=== PATIENT | female | born 1980 | race Caucasian/White ===

== ENCOUNTER 2016-10-09 19:45 | Inpatient (IN) | payer OTHER ==
[2016-10-09] MEDS ORDERED: Lactated Ringer's 1,000 ML IV SCH ×2 (19:47→20:00)
[2016-10-09 19:48] VITALS: BMI 25.0
[2016-10-09 20:50] LABS: BASO % 0.4 % (0.0-2.0); EOS # 0.2 K/uL (0.0-0.7); EOS % 1.6 % (0.0-4.0); HEMATOCRIT 34.4 % (34.0-47.0); LYMPH # 1.6 K/uL (1.0-4.3); LYMPH % 14.3 % (20.0-40.0); MEAN CELL VOLUME 90.3 fl (81.0-99.0); MEAN CORPUSCULAR HEMOGLOBIN 29.7 pg (27.0-31.0); MEAN CORPUSCULAR HGB CONC 32.9 g/dL (33.0-37.0); MEAN PLATELET VOLUME 8.3 fl (7.2-11.7); MONO % 9.2 % (0.0-10.0); NEUT # 8.3 K/uL (1.8-7.0); NEUT % 74.5 % (50.0-75.0); NRBC % 0.1 % (0.0-0.0); RED CELL DISTRIBUTION WIDTH 13.2 % (11.5-14.5); WHITE BLOOD COUNT 11.1 K/uL (4.8-10.8)
--- NOTE | 2016-10-09 21:00 | OBHP ---
Datetime: 10/09/2016 19:57 IP Adm Impression: Term, intrauterine IP Admit Plan: Admit to unit; Initiate labor protocol; Initiate labor induction protocol Admit Comment, IP Provider: 36 y/o @37.1 weeks IUP presents for IOL due to low QUINTEN. Patient hill s no complaints. Patient reports positive movements. Patient continues taking PNVs, vit D, Vi t C, and omega-3. Patient denies VB, LOF, CTX, headaches, chest pain, SOB, n/v/d, dysuria, and fever . Clinic: [facility] PMH: none PSH: hysteroscopy 10/2015 OBHx: none SOC: denies smoking, alcohol, and drugs GBS: neg HIV: neg RPR: neg rubella: immune GC/C: neg O: CV: RRR Resp: CTA bl A: 36 y/o @ 37.1 weeks IUP presents for IOL due to low QUINTEN P: admit to unit initiate labor protocol initiate induction protocol continuous monitoring LR IV bolus LR IV @ 125mL/hr CBC w/ diff ordered type and screen ordered cervidil ordered anticipate vaginal delivery Jw Baltazar MD Clinical Ob The patient was seen with the resident and I agree with the notes induction of labor secondary to Oligohydramnios Will Place cervidil adequate pelvis vertex presentation estimated weight 7 poun ds anticipate normal vaginal delivery Pelvic Type - PN: Adequate Extremities - PN: Normal Abdomen - PN: Normal Back - PN: Normal Breast - PN: Normal Lungs - PN: Normal Heart - PN: Normal Thyroid - PN: Normal Neurologic - PN: Normal HEENT - PN: Normal General - PN: Normal IP Indication for Induction Oth: low QUINTEN IP Chief Complaint: Scheduled induction of labor Genitourinary Exam: Normal DTRs - PN: Normal
--- NOTE | 2016-10-10 11:19 | OBPN ---
Datetime: 10/10/2016 11:02 IP Progress Impression Other: Oligohydramnios IP Procedures: Sterile Vag Exam IP Progress Plan: Continue present management Membranes, Provider: Intact Contraction Comments Provider: Q2 FHR - Baseline A Provider: 140 IP Progress Note Comment: 36 yo G1 at 37+2 wks for induction of labor for oligohydramnios S/p cervidil Will start pitocin if contractions less frequent Vital Signs Provider: Reviewed NICHD Accel Fetus A IP Provider: [id number] FHR Category Provider Fetus A: Category I NICHD Variability Prov Fetus A: Moderate 6-25bpm Dilatation, Provider: 0 Effacement, Provider: 80 Station, Provider: -3 NICHD Decel Fetus A IP Provider: None
[2016-10-10] MEDS ORDERED: Lactated Ringer's 500 ML IV SCH (12:00)
[2016-10-10] MEDS ORDERED: Lactated Ringer's 1,000 ML IV SCH ×3 (13:02→22:15)
--- NOTE | 2016-10-10 19:06 | OBPN ---
Datetime: 10/10/2016 18:47 IP Progress Impression Other: Oligohydramnios IP Procedures: Sterile Vag Exam IP Progress Plan: Cervical Ripening Membranes, Provider: Intact FHR - Baseline A Provider: 130 IP Progress Note Comment: 36 yo G1 at 37+2 wks for oligohydramnios s/p cervidil FHT reassuring, GBS negative Will start oral miso 25 mcg Vital Signs Provider: Reviewed NICHD Accel Fetus A IP Provider: 15X15 FHR Category Provider Fetus A: Category I NICHD Variability Prov Fetus A: Moderate 6-25bpm Dilatation, Provider: 1 Effacement, Provider: 65 Station, Provider: -2
[2016-10-11] MEDS ORDERED: Oxytocin 30 units/LR 500ML 30 U/500 ML BAG IV ONE (09:37)
[2016-10-11] MEDS ORDERED: Lactated Ringer's 1,000 ML IV SCH ×2 (14:30→15:32)
--- NOTE | 2016-10-11 17:21 | OBDS ---
DELIVERY PERSONNEL Delivery Doctor: Jolynn Guadalupe MD Child Psychologist: [id number] MATERNAL INFORMATION Delivery Anesthesia: Epidural Medications in Delivery: Pitocin Provider Comments: delivered live baby boy at 4:56 PM the baby was bulb suctioned on the perineum th en transferred to maternal chest. There was 1 loose nuchal cord which was easily reduced. The cord wa s clamped and cut and 3 vessels noted, cord blood was obtained and sent to the lab. The placenta was delivered at 5:01 PM intact, the estimated blood loss was 150 mL. The mother sustained a second-degre e laceration which was repaired with 2-0 Rapide. The mother tolerated the procedure well. The baby we nt to the [facility] weighing 2720 g with Apgars of 9 and 9 LABOR SUMMARY EDC: 10/29/2016 00:00 No. Babies in Womb: 1 Attempted: No Labor Anesthesia: Epidural LABOR INFORMATION Reason for Induction: Oligohydramnios Onset of Labor: 10/11/2016 14:30 Complete Dilatation: 10/11/2016 16:20 Cervical Ripening Agents: Cytotec @ (Annotations: Cytotec 50 mcg PO given to patient as per MD order ) Other Ripening Agents: Cervidil inserted by Dr. Guadalupe Oxytocin: Augmentation Group B Beta Strep: Negative Antibiotics # of Doses: n/a Antibiotics Time of Last Dose: n/a Steroids Given: None Reason Steroids Not Administered: Not Applicable MEMBRANES Membranes Rupture Method: Artificial Rupture of Membranes: 10/11/2016 13:40 Length of Rupture (hrs): 3.27 Amniotic Fluid Color: Clear Amniotic Fluid Amount: Moderate Amniotic Fluid Odor: Normal STAGES OF LABOR Stage 1 hrs: 1 Stage 1 min: 50 Stage 2 hrs: 0 Stage 2 min: 36 Stage 3 hrs: 0 Stage 3 min: 5 Total Time in Labor hrs: 2 Total Time in Labor min: 31 VAGINAL DELIVERY Episiotomy: None Laceration Extension: Second Degree Laceration Type: Perineal; Vaginal Laceration Repair Note: Prepared with 2-0 rapide Sponge Count Correct: Yes Sharps Count Correct: Yes BABY A INFORMATION Delivery Date/Time: 10/11/2016 16:56 Method of Delivery: Vaginal Born in Route : No : N/A Forceps: N/A Vacuum Extraction: N/A Shoulder Dystocia : No SHOULDER DYSTOCIA BABY A Infant Delivery Date/Time: 10/11/2016 16:56 PRESENTATION/POSITION BABY A Presentation: Cephalic Cephalic Presentation: N/A Breech Presentation: N/A PLACENTA INFORMATION BABY A Placenta Delivery Time : 10/11/2016 17:01 Placenta Method of Delivery: Spontaneous Placenta Status: Delivered SCORES BABY A Heart Rate 1 min: >100 bpm Resp Effort 1 min: Good Cry Reflex Irritability 1 min: Cough or Sneeze or Pulls Away Muscle Tone 1 min: Active Motion Color 1 min: Body [place], Extremities Blue Resuscitation Effort 1 min: Tactile Stimulation SCORE 1 MIN: 9 Heart Rate 5 min: >100 bpm Resp Effort 5 min: Good Cry Reflex Irritability 5 min: Cough or Sneeze or Pulls Away Muscle Tone 5 min: Active Motion Color 5 min: Body [place], Extremities Blue Resuscitation Effort 5 min: N/A SCORE 5 MIN: 9 INFANT INFORMATION BABY A Gestational Age at Delivery: 37.3 Gestational Status: Term Infant Outcome : Liveborn Infant Condition : Stable Sex: Male IDENTIFICATION/MEDS BABY A ID Band Number: [id number] ID Band Location: Right Leg; Right Arm Vitamin K Given : Not Given Erythromycin Given: Not Given CORD INFORMATION BABY A No. Cord Vessels: 3 Nuchal Cord : Around Neck x1, Loose Nuchal Cord Other: n/a True Knot: n/a Infant Cord pH Baby Arterial: n/a Infant Cord pH Baby Venous: n/a Cord Blood Taken: Yes Banking/Donate Info: n/a Suction: Mouth; Nose ASSESSMENT BABY A Complications: None Physical Findings at Delivery: Within Normal Limits Respirations: Appears Normal (Annotations: Data stored by [facility] on behalf of user)
[2016-10-11] MEDS ORDERED: Oxycodone/Acetaminophen 5/325 mg Tab PO PRN ×4 (17:22→20:11)
[2016-10-11] MEDS ORDERED: Benzocaine/Menthol SPRAY TOP PRN ×2 (17:22→20:11)
[2016-10-11 20:31] VITALS: BP 119/60; PULSE 77; RESP 18; TEMP 98.8; O2SAT 100
[2016-10-12 08:05] LABS: HEMATOCRIT 29.4 % (34.0-47.0); MEAN CELL VOLUME 89.5 fl (81.0-99.0); MEAN CORPUSCULAR HEMOGLOBIN 30.5 pg (27.0-31.0); MEAN CORPUSCULAR HGB CONC 34.1 g/dL (33.0-37.0); RED CELL DISTRIBUTION WIDTH 12.7 % (11.5-14.5); WHITE BLOOD COUNT 16.9 K/uL (4.8-10.8)
--- NOTE | 2016-10-12 08:30 | OBPPN ---
Datetime: 10/12/2016 08:27 PP Pain Prov: Within normal limits PP Nausea Prov: Denies PP Flatus Prov: Yes PP Breasts Prov: Not Done PP Heart Prov: Normal PP Lungs Prov: Normal PP Abdomen/Uterus Prov: Normal PP Lochia Prov: Not Done PP Vulva/Perineum Prov: Not Done PP CVA Tenderness Prov: Normal PP Extremities Prov: Normal PP Impression Prov: Normal progression PP Plan Prov: Continue present management PP Progress Note Prov: Doing well no complaints. She reports minimal lochia and pain well controlled voiding without difficulty Vital signs stable afebrile Uterus firm below the umbilicus Extremities no Homans day 1 Encourage ambulation, breast-feeding, Motrin as needed Patient desires circumcision for her son informed consent obtained Vital Signs Provider PP: Reviewed
--- NOTE | 2016-10-13 10:30 | OBPPN ---
Datetime: 10/13/2016 10:28 PP Pain Prov: Within normal limits PP Nausea Prov: Denies PP Flatus Prov: Yes PP Breasts Prov: Not Done PP Heart Prov: Normal PP Lungs Prov: Normal PP Abdomen/Uterus Prov: Not Done PP Lochia Prov: Not Done PP Vulva/Perineum Prov: Not Done PP CVA Tenderness Prov: Normal PP Extremities Prov: Normal PP Impression Prov: Normal progression PP Plan Prov: Discharge PP Progress Note Prov: Patient doing well and reports minimal lochia ambulating tolerating diet and voiding without difficulty discomfort controlled with Motrin Vital signs stable afebrile Uterus firm below the umbilicus Extremities no Homans day #2 Patient cleared for discharge Motrin and Anusol HC provided Nothing per vagina No heavy lifting Vital Signs Provider PP: Reviewed
--- NOTE | 2016-10-13 10:32 | OBDCSUM ---
Datetime: 10/13/2016 08:32 Discharged to, Provider: home Follow up at, Provider: TOMMIE Guadalupe Disch Instr Activity: Normal activity Disch Instr Diet: Regular Discharge Diagnosis, Provider: Term Delivered Follow up in weeks, Provider: 6 weeks. Disch Activity Restrictions: No exercising; No sexual activity; Nothing in vagina - [place], [place] aristeo jimenez Discharge Comment, Provider: Patient cleared for discharge Contraception after Delivery: Undecided
== END 2016-10-13 13:55 | disposition home or self-care (01) | DRG 775 ==
LOC: H.EROB2 19:45 → H.L&D 19:47 → H.OB/GYN 10-11 20:44
PROVIDERS: ADMIT Obstetrics & Gynecology Gynecology; ATTEND Obstetrics & Gynecology Gynecology
PROC: 10E0XZZ Delivery of Products of Conception, External Approach (ICD-10-PCS; principal; 2016-10-09)
PROC: 4A1HXCZ Monitoring of Products of Conception, Cardiac Rate, External Approach (ICD-10-PCS; 2016-10-09)
PROC: 4A1HXCZ Monitoring of Products of Conception, Cardiac Rate, External Approach (ICD-10-PCS; 2016-10-09)
DX: O41.03X0 Oligohydramnios, third trimester, not applicable or unspecified (principal); O69.81X0 Labor and delivery complicated by cord around neck, without compression, not applicable or unspecified; Z37.0 Single live birth; O70.1 Second degree perineal laceration during delivery; Z3A.37 37 weeks gestation of pregnancy